=== PATIENT | female | born 1965 | race Caucasian/White ===

== ENCOUNTER 2017-06-05 07:02 | Day surgery (SDC) | payer MEDICARE, BC ==
[~2017-06-05] VITALS: Ht 165.1 cm; Wt 66.8 kg
[2017-06-05] VITALS (16 sets, daily range): BP systolic 93–118; BP diastolic 50–80; PULSE 61–82; RESP 8–18; Ht 165.1 cm; Wt 66.8 kg
[~2017-06-05 07:02] MED LIST: EPHEDrine SULFATE 50 MG/5 ML SYG ONE
[2017-06-05] MEDS ORDERED: BACL10TA PO (07:40)
[2017-06-05] MEDS ORDERED: ESCI5TAB PO (07:41)
[2017-06-05] MEDS ORDERED: LISI40TA9 PO (07:41)
[2017-06-05] MEDS ORDERED: CHOL200073 PO (07:42)
[2017-06-05] MEDS ORDERED: METO-335 PO (07:42)
[2017-06-05] MEDS ORDERED: GELATIN SIZE 100 SPONGE ONE (10:19)
[2017-06-05] MEDS ORDERED: THROMBIN 5000 UNIT VIAL ONE (10:19)
[2017-06-05] MEDS ORDERED: POLYMYXIN/BACITRACIN 1L IRRIG ONE (10:19)
--- NOTE | 2017-06-05 10:26 | HPN ---
Date/Time of Note Date/Time of Note DATE: 06/05/17 TIME: 10:26 Interval H&P Admission Note Pt. seen H&P reviewed: No system changes LUKE OSCAR DPM Jun 05, 2017 10:26
[2017-06-05] MEDS ORDERED: CEFAZOLIN 1 GM INJ ONE (10:40)
[2017-06-05] MEDS ORDERED: ROPIVACAINE 0.5 % 30 ML VIAL ONE (10:40)
[2017-06-05] MEDS ORDERED: FENTAnyl 50 MCG/ML VIAL ONE ×3 (10:40→14:13)
[2017-06-05] MEDS ORDERED: MIDAZOLAM 1 MG/ML 2 ML INJ ONE ×2 (10:40→10:53)
[2017-06-05] MEDS ORDERED: PROPOFOL 20 ML ONE (10:40)
[2017-06-05] MEDS ORDERED: PHENYLephrine (100 MCG/ML) 5ML SYG ONE (11:02)
[2017-06-05] MEDS ORDERED: BUPIVACAINE 0.5%/EPI (SDV) 30 ML INJ ONE (11:13)
[2017-06-05] MEDS ORDERED: METOCLOPRAMIDE 10 MG INJ ONE (11:29)
[2017-06-05] MEDS ORDERED: ACETAMINOPHEN 1000MG/100ML IV 100 ML ONE (11:29)
[2017-06-05] MEDS ORDERED: ONDANSETRON 4 MG INJ ONE (11:29)
[2017-06-05] MEDS ORDERED: DEXAMETHASONE 4 MG/ML 1 ML INJ ONE (11:30)
[2017-06-05] MEDS ORDERED: KETOROLAC 30 MG INJ ONE (11:30)
[2017-06-05] MEDS ORDERED: LABETALOL HCL 20MG INJ IV PRN (12:00)
[2017-06-05] MEDS ORDERED: hydrALAzine 20 MG INJ IV PRN (12:00)
[2017-06-05] MEDS ORDERED: ONDANSETRON 4 MG INJ IV PRN (12:00)
[2017-06-05] MEDS ORDERED: METOCLOPRAMIDE 10 MG INJ IV PRN (12:00)
[2017-06-05] MEDS ORDERED: DIPHENHYDRAMINE 50 MG INJ IV PRN (12:00)
[2017-06-05] MEDS ORDERED: HYDROmorphONE (0.2 MG/ML) 10ML SYG IV PRN ×2 (12:00)
[2017-06-05] MEDS ORDERED: morphine (1 MG/ML) 10ML SYRINGE IV PRN ×3 (12:00)
[2017-06-05] MEDS ORDERED: FENTAnyl 50 MCG/ML VIAL IV PRN ×2 (12:00)
[2017-06-05] MEDS ORDERED: MEPERIDINE 25 MG INJ IV PRN (12:00)
[2017-06-05] MEDS ORDERED: EPHEDrine SULFATE 50 MG/5 ML SYG IV PRN (12:00)
[2017-06-05] MEDS ORDERED: OXYCODONE/ACETAMINOPHEN (5/325) TAB PO PRN ×2 (12:00)
[2017-06-05] MEDS ORDERED: LABETALOL HCL 20MG INJ ONE (12:49)
[2017-06-05] MEDS ORDERED: BUPIVACAINE 0.5% (SDV) 30 ML INJ ONE (12:54)
--- NOTE | 2017-06-05 14:06 | RADRPT ---
PROCEDURE: Intraoperative imaging of the left ankle with fluoroscopy. CLINICAL INDICATION: Left ankle pain. Intraoperative. TECHNIQUE: 5 images of the left ankle were obtained in the operating room with an image intensifie r. No radiologist was in attendance. Fluoroscopy time is 69 seconds. COMPARISON: No prior study is available for comparison. FINDINGS: Surgical instruments are noted overlying the left ankle. Images demonstrate placement of a ross in the distal tibia, traversing the talus and calcaneus. Locki ng screws are present proximally and distally. IMPRESSION: 1. Intraoperative imaging of the left ankle. RPTAT: QQ .Walter Villeda MD, MD Date Time Electronically viewed and signed by .Walter Villeda MD, on 06/05/2017 14:06 .R/
--- NOTE | 2017-06-05 14:17 | SIPON ---
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 Hardware from left ankle. Grafts/Implants none Complications none LUKE OSCAR DPM Jun 05, 2017 14:17
--- NOTE | 2017-06-05 14:17 | OPR ---
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 Subtalar joint arthrodesis left foot 2. Ankle joint arthrodesis left foot 3. Left foot and ankle arthrodesis using intramedullary nailing 4. Left peroneus brevis and longus tendon rupture repair 5. Application of autograft bone graft 6. Application of allograft bone graft 7. Intraoperative use and interpretation of fluoroscopy 8. Application of posterior splint left lower extremity 10. Removal of hardware left ankle Surgeon see signature line Fitting Room Operator None Anesthesia Type: general Estimated Blood Loss: 10 - 50 ml's Transfusion none Specimen Bone from the left foot and ankle. Hardware left ankle. Grafts/Implants none Tubes/Drains none Complications none Pt Condition Post Procedure: stable Indications This is a pleasant 52-year-old female patient who has been suffering with severe left foot and ankle deformity and arthritis secondary to previous trauma. Patient was evaluated and was found to have significant deformity of the foot and ankle with subtalar joint and ankle joint degenerative joint disease and fixed ankle equinus and varus deformity. 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 Patient has failed the following treatments: Intra-articular injections, bracing, assistive devices for gait, NSAIDs, pain medication etc. Patient seeks surgical management. Recommended procedure: Subtalar joint and ankle joint arthrodesis with allograft bone and autograft bone using intramedullary nailing. Risks and complications of this type of surgery was discussed with patient in great detail. Risks and complications discussed included, but are not limited to, postoperative infection, postoperative pain, hardware failure, malunion, nonunion, delayed union, failure of surgery to correct the problem, need for additional surgical procedures, deep venous thrombosis, limb loss and loss of life. Patient understands the discussion and agrees to the procedure. An informed consent was signed, obtained and placed in the chart. No guarantees or warrantees was given or implied as to the outcome of the procedure either in verbal or written form. Procedure Description Patient was seen in the preoperative area. Proposed surgery was discussed with patient in great detail. Risks and complications were discussed. An informed consent was obtained, signed and placed in the chart. The patient was given opportunity to ask questions and all questions were answered. Patient acknowledges understanding of the discussion and agrees to the procedure. The patient was then taken to the operating room and was placed on the operating table in the supine position. Placed under general anesthesia by the anesthesiologist. A thigh tourniquet was applied to the right thigh. All bony prominences were padded properly. A timeout was called and agreed upon by all members of the operating room. C-arm was used to evaluate the deformities present. Patient has a fixed valgus deformity of the ankle joints and significant degenerative joint disease both in the ankle joint and subtalar joint. There was a screw present in the medial malleolus. A small incision was made on the medial malleolus using a #10 blade. Bleeders are cauterized as necessary. Vital neurovascular structures were identified and protected. The screw head was identified and the screw was removed and passed to the back table. I decided to make an incision on the lateral aspect of the ankle measuring 15 cm and slightly curved anteriorly to the calcaneocuboid joint using a #10 blade. Bleeders were cauterized as necessary. Dissection was deepened using sharp and blunt dissection with care being taken to identify vital neurovascular structures. Bleeders were cauterized as necessary. Dissection was made to the periosteal area on the fibula. Periosteal dissection was made. First, I cut the fibula about 5 cm above the distal aspect of the lateral malleolus using a power saw. The fibula was then excised and preserved in the back table for use as bone graft. The ankle joint was then dissected. Significant degenerative joint disease of the ankle joint was noted. Dissection was carried anteriorly into the calcaneocuboid joint and the subtalar joint was exposed. Evaluation of the peroneal tendons revealed rupture of the Proteus brevis and longus tendons. First, using 0 FiberWire, I repaired the rupture of the peroneal tendons. Next, I went ahead and inserted a lamina general studies program chair and the subtalar joint and proceeded to remove and prepared the posterior facet for fusion. Once that was completed, I went ahead and started on preparing surface of the joint and the ankle joint in similar fashion. Next, I made a wedge cut at the distal tibial plafond in order to bring the ankle out of varus. Temporary K wire was placed in and held the foot in the neutral position along with the ankle. Intraoperative fluoroscopy was obtained and the alignment was found. Next, there was some bony gap present. The fibula that was removed was fashioned into a bone graft and will be utilized for bone filler and also structural graft in the ankle joint. Bone graft and bone putty was mixed with [employer] from [employer] for use and bony gaps. Next, I proceeded to insert the guidewire for the intramedullary nail using fluoroscopic guidance. The guidewire was inserted from the plantar aspect of the foot with the foot held in neutral position with the ankle joint. Once I was able to insert the guidewire in the proper position, an incision was made on the plantar aspect of the heel. A drill was inserted and I performed preliminary drilling through the calcaneus into the talus and into the distal tibia. Next, the guidewire was removed and the other wire was inserted into the intramedullary canal through the calcaneus and the talus. I reamed the intramedullary canal of the distal tibia to size 10.5. I decided to utilize a 150 mm nail size 10 based on the reading that was done. Structural bone graft was next inserted and held in place. Next, using intraoperative fluoroscopy, the nail was inserted from the plantar aspect of the calcaneus through the subtalar joint through the ankle joint and into the tibia. Using the provided jig, I inserted the 2 proximal screws using intraoperative fluoroscopic guidance; 1 cm small incisions were made and blunt dissection was made to bone prior to insertion of the drill. Next, the talar screw was inserted followed by the calcaneal screw and the subtalar joint screws in a similar fashion. The jig was then removed and an nail Was inserted. Intraoperative fluoroscopic pictures were obtained. The tourniquet was then deflated at this time and prompt hyperemic response was noted to digits of the left foot. Bleeders were cauterized and controlled using electrocautery. The wound was flushed with copious amounts of sterile normal saline. The ankle joint was fused in neutral position at 90. Next, the deep fascia was closed using 3-0 Vicryl suture. Subcutaneous layer was closed using 4-0 Vicryl suture and the skin was closed using mihaela. All the small incisions were closed using staple as well. The anesthesiologist will be performing a femoral and a popliteal block. Sterile dressing was applied followed by a posterior splint. The patient tolerated the procedure and anesthesia well. She was transferred to recovery room with vital signs stable vascular status intact. Patient will be discharged home after postoperative monitoring. Patient is to remain nonweightbearing on the left lower extremity. I will see the patient in my office in 1 week. LUKE OSCAR DPM Jun 05, 2017 14:17
[2017-06-05] MEDS: HYDROmorphONE (0.2 MG/ML) 10ML SYG IV PRN ×3 (14:24→15:07)
[2017-06-05] MEDS: FENTAnyl 50 MCG/ML VIAL IV PRN ×3 (14:34→15:15)
--- NOTE | 2017-06-05 15:10 | RADRPT ---
PROCEDURE: XR Left Foot. CLINICAL INDICATION: Left foot pain. Postop. TECHNIQUE: Single frontal view. COMPARISON: Intraoperative imaging of the left ankle than earlier the same day. FINDINGS: Bone detail is obscured by the overlying cast. There has been prior surgery with hardware in the distal tibia, talus, and calcaneus. Skin mihaela are noted. There is no lytic lesion. IMPRESSION: 1. Bone detail obscured by overlying cast. 2. Postoperative changes of the hind foot. RPTAT: QQ .Walter Villeda MD, MD Date Time Electronically viewed and signed by .Walter Villeda MD, MD on 06/05/2017 15:09 .R/
--- NOTE | 2017-06-05 15:11 | RADRPT ---
PROCEDURE: XR Ankle. CLINICAL INDICATION: . TECHNIQUE: AP, lateral views of the left ankle were performed. COMPARISON: None. FINDINGS: 2 views of the left ankle are obtained. There is arthrodesis of the talotibial and talocalcaneal domitila nt using intramedullary ross with proximal and distal locking screws. There is osteotomy of the dista l fibula. Old mid tibial and fibular diaphyseal fractures are seen. No acute fractures identified. T he bones are osteopenic. There is skin mihaela along the medial lateral malleolus. Bimalleolar soft tissue swelling is seen. A plaster cast is in place IMPRESSION: 1. Status post arthrodesis of the talotibial and talo calcaneal joint using intramedullary ross with proximal and distal locking screws. There is also osteotomy of the distal fibula. 2. No acute fracture dislocation. 3. Healed diaphyseal fractures of the tibia and fibula. 4. Postoperative changes with subcutaneous edema, subcutaneous air and skin mihaela. 5. Plaster cast in place RPTAT: .Inderjit Chadwick MD, Date Time Electronically viewed and signed by .Inderjit Chadwick MD, on 06/05/2017 15:10 .W/
== END 2017-06-05 17:12 | disposition home or self-care (01) ==
LOC: SDS 07:02
PROVIDERS: ATTEND Podiatrist Foot & Ankle Surgery
DX: Z47.2 Encounter for removal of internal fixation device (principal); M19.072 Primary osteoarthritis, left ankle and foot; M21.072 Valgus deformity, not elsewhere classified, left ankle; S86.312D Strain of muscle(s) and tendon(s) of peroneal muscle group at lower leg level, left leg, subsequent encounter; X58.XXXD Exposure to other specified factors, subsequent encounter
CPT/HCPCS: 20680; 28200; 28725; 73610; 73620; 84703; 88300; 88304; 88311; C1713; J0131; J0690; J1100; J1170; J1200; J1885; J2175; J2250; J2370; J2405; J2765; J2795; J3010

== ENCOUNTER → 2017-10-07 | Day surgery (SDC) | END | disposition home or self-care (01) ==